=== PATIENT | female | born 2000 | race Caucasian/White ===

== ENCOUNTER 2019-12-29 15:36 | Emergency (ER) | payer OTHER ==
[~2019-12-29] VITALS: Ht 154.9 cm; Wt 61.2 kg
[2019-12-29 15:43] VITALS: BP 125/81
--- NOTE | 2019-12-29 15:50 | NUR ---
19 Y/O FEMALE FROM HOME C/O HEADACHE AND LT LOWER BACK PAIN X 5 DAYS. PT STATES BLURRED VISION IN LT EYE. INTERMITTENT LOWER BACK PAIN, WORSE WITH STANDING. STATES PHOTOSENSITIVITY TO LIGHT AT THIS TIME. HAS BEEN TAKING EXCEDRIN FOR HEADACHE WITH MINIMAL RELIEF. DENIES N/V/D. WAS REFERRED FROM URGENT CARE TODAY. VSS. AWAKE AND ALERT, POSITIONED FOR COMFORT MEDHX: DENIES ALLERGIES: NKA
--- NOTE | 2019-12-29 16:00 | NUR ---
DR ESTEVEZ AT BEDSIDE EXAMINING PT
[2019-12-29] MEDS ORDERED: NACL 0.9% 1,000 ML IV ONE (16:05)
[2019-12-29] MEDS ORDERED: KETOROLAC 15 MG/ML VIAL IVP ONE (16:05)
[2019-12-29] MEDS ORDERED: PROCHLORPERAZINE 10 MG/2 ML VIAL IVP ONE (16:05)
[2019-12-29] MEDS ORDERED: diphenhydrAMINE 50 MG/ML VIAL IVP ONE (16:05)
--- NOTE | 2019-12-29 16:05 | NUR ---
PT AMBULATED TO RESTROOM, URINE COLLECTED AT THIS TIME
--- NOTE | 2019-12-29 16:11 | NUR ---
20G IV PLACED TO RT AC, LABS DRAWN AT THIS TIME. PT TOLERATED WELL
[2019-12-29 16:17] LABS: BASOPHILS % (AUTO) 0.6 % (0.0-2.0); EOSINOPHILS % (AUTO) 0.2 % (0.0-4.0); HEMATOCRIT 39.6 % (36-48); HEMOGLOBIN 13.4 g/dL (12.0-16.0); LYMPHOCYTES # (AUTO) 1.9 K/uL (2.5-16.5); LYMPHOCYTES % (AUTO) 41.3 % (20.5-51.1); MEAN CORPUSCULAR HEMOGLOBIN 29 pg (27-31); MEAN CORPUSCULAR HGB CONC 34 g/dL (33-37); MONOCYTES # (AUTO) 0.3 K/uL (0.8-1.0); MONOCYTES % (AUTO) 5.8 % (1.7-9.3); NEUTROPHILS # (AUTO) 2.4 K/uL (1.8-7.7); NEUTROPHILS % (AUTO) 52.1 % (42.2-75.2); PLATELET COUNT (AUTO) 262 K/uL (140-450); RED BLOOD CELL COUNT(AUTO) 4.66 MIL/uL (4.20-5.40); RED CELL DISTRIBUTION WIDTH 13.2 % (11.6-13.7); WHITE BLOOD COUNT (AUTO) 4.6 K/uL (4.5-11.0)
[2019-12-29 16:30] LABS: ANION GAP 13.3 (8-16); CARBON DIOXIDE 25.4 mmol/L (21-32); CREATININE 0.7 mg/dL (0.6-1.3); POTASSIUM 3.7 mmol/L (3.5-5.1)
[2019-12-29 17:04] LABS: APPEARANCE,URINE SL CLOUDY (CLEAR); BILIRUBIN,URINE NEGATIVE (NEGATIVE); BLOOD, URINE NEGATIVE (NEGATIVE); COLOR,URINE YELLOW (YELLOW); LEUKOCYTE ESTERASE ,URINE NEGATIVE (NEGATIVE); NITRITE, URINE NEGATIVE (NEGATIVE); PH,URINE 5.5 (5.0-9.0); UGLUCOSE NEGATIVE (NEGATIVE)
--- NOTE | 2019-12-29 17:23 | NUR ---
PT STATES DECREASE IN HEADACHE, RR EVEN AND UNLABORED. VSS. WILL CONTINUE TO MONITOR
[2019-12-29 17:50] VITALS: BP 127/64
--- NOTE | 2019-12-29 17:54 | NUR ---
Patient discharged with v/s stable. Written and verbal after care instructions given and explained. Patient verbalized understanding. Ambulatory with steady gait. All questions addressed prior to discharge. Advised to follow up with PMD.
== END 2019-12-29 17:54 | disposition home or self-care (01) ==
LOC: MED 15:36
DX: R51 Headache (principal); M54.5 Low back pain
CPT/HCPCS: 36415; 80048; 81003; 81025; 85025; 96374; 96375; 99284; J0780; J1200; J1885; J7030

== ENCOUNTER 2020-01-01 18:17 | Emergency (ER) | payer OTHER ==
[~2020-01-01] VITALS: Ht 162.6 cm; Wt 61.2 kg
--- NOTE | 2020-01-01 18:29 | NUR ---
Patient ambulated to bed 6. RN evaluating patient at bedside.
[2020-01-01 18:31] VITALS: BP 123/83
--- NOTE | 2020-01-01 18:32 | NUR ---
19 Y/O F C/C MIGRAINE H/A X 1 WEEK. PER PT PROGRESSIVELY WORSE WITH A 4/10 PRESSURE PAIN, NON RADIATING. TAKEN SUMAPTRANTAN WITH SLIGHT RELIEF. COMPLAINTS OF BLURRY VISION ON RIGHT EYE DUE TO H/A. PUPILS PERRLA. CRANIAL NERVES II,III,IV, INTACT. PT NKA. NO HX. RX SUMAPTRANTAN. NO N/V/D. SIDE RAIL X1.
--- NOTE | 2020-01-01 18:35 | NUR ---
VISUAL ACUITY R EYE 20/50 L EYE 20/100 BOTH EYES 20/100
--- NOTE | 2020-01-01 19:15 | NUR ---
RECEIVED REPORT FROM NADIA SAMSON. CONTINUATION OF CARE.
--- NOTE | 2020-01-01 19:16 | NUR ---
report given to arthur olvera for continuity of care
--- NOTE | 2020-01-01 19:16 | NUR ---
PT WENT TO CT VIA WC.
--- NOTE | 2020-01-01 19:20 | NUR ---
PT RETRURNED FROM CT VIA W/C ABLE TO AMBULATE TO BED WITH STEADY GAIT.
--- NOTE | 2020-01-01 19:50 | NUR ---
PT TRANSFERED TO BED 2.
--- NOTE | 2020-01-01 20:04 | NUR ---
VISUAL ACCUITY TEST DONE. PT UNABLE TO CHART WITHOUT GLASEES. PT ABLE TO SEE 20/50 IN LEFT EYE, 20/70 IN R EYE, AND 20/70 FOR BOTH EYES.
--- NOTE | 2020-01-01 20:15 | NUR ---
Pt mom request relayed to Dr Cam.
[2020-01-01 20:20] VITALS: BP 123/83
--- NOTE | 2020-01-01 20:20 | NUR ---
Patient discharged with v/s stable. Written and verbal after care instructions given and explained. Patient verbalized understanding. Ambulatory with steady gait. All questions addressed prior to discharge. Advised to follow up with PMD. PT WAS ROAD TESTED AND HAD A VISUAL ACUITY TEST DONE. PT RECIEVED A DOCTORS NOTE FOR SCHOOL PER REQUEST.
== END 2020-01-01 20:20 | disposition home or self-care (01) ==
LOC: MED 18:17
DX: H53.8 Other visual disturbances (principal); R51 Headache; R11.2 Nausea with vomiting, unspecified
CPT/HCPCS: 70450; 81025; 99284